=== PATIENT | male | born 1985 | race Two or more races ===

== ENCOUNTER 2017-07-25 10:15 | Emergency (ER) | payer MEDICARE ==
[~2017-07-25] VITALS: Ht 188 cm; Wt 124.7 kg
[2017-07-25 11:09] LABS: Basophils # (auto) 0.1 uL; Eosinophils # (auto) 0.1 uL; Eosinophils % (auto) 0.9 % (0.0-7.0); Hematocrit 44.4 % (41.0-53.0); Hemoglobin 15.3 g/dL (13.5-17.5); Lymphocytes # (auto) 3.1 uL; Lymphocytes % (auto) 30.2 % (10.0-50.0); Mean Corpuscular Hgb Conc. 34.6 g/dL (32.0-36.0); Mean Corpuscular Volume 92.6 fL (80.0-100.0); Mean Platelet Volume 9.4 fL (6.9-10.8); Monocytes # (auto) 0.7 uL; Monocytes % (auto) 6.7 % (0.0-12.0); Neutrophils # (auto) 6.2 uL; Neutrophils % (auto) 61.2 % (37.0-80.0); Nucleated Red Blood Cells % 0.1 %; Platelet Count (auto) 244 10^3/uL (140-450); Red Cell Distribution Width 13.2 % (11.8-14.3); White Blood Cell 10.2 10^3/uL (4.4-10.8)
[2017-07-25 11:36] LABS: Albumin 3.9 g/dL (3.4-5.0); BUN/Creatinine Ratio 12.6; Bilirubin, Total 1.5 mg/dL (0.2-1.0); Calcium 8.9 mg/dL (8.5-10.1); Potassium 4.1 mmol/L (3.5-5.1); Total Protein 7.7 g/dL (6.4-8.2)
[2017-07-25] MEDS ORDERED: SODIUM CHLORIDE 0.9% 1,000 ML IV ONE ×3 (11:53→16:30)
[2017-07-25] MEDS ORDERED: InsuLIN REG 1unit/0.01ml Soln (100units/ml) IV ONE ×3 (12:00→17:15)
[2017-07-25 12:14] LABS: Urine Bilirubin Negative (Negative); Urine Blood Negative /uL (Negative); Urine Color Yellow (Yellow); Urine Glucose 4+ mg/dL (Normal); Urine Ketone 1+ (Negative); Urine Nitrite Negative (Negative); Urine RBC <1 /hpf (0 - 3); Urine Urobilinogen Normal (Negative); Urine pH 5.5 (5.0-8.0)
[2017-07-25 15:54] VITALS: BP 150/98
== END 2017-07-25 17:46 | disposition home or self-care (01) ==
LOC: ER 10:15
DX: E11.65 Type 2 diabetes mellitus with hyperglycemia (principal); E11.22 Type 2 diabetes mellitus with diabetic chronic kidney disease; N18.9 Chronic kidney disease, unspecified; M10.9 Gout, unspecified
CPT/HCPCS: 36415; 80053; 81001; 82962; 85025; 96361; 96374; 96376; 99284; J1815; J7030; J7040

== ENCOUNTER 2017-08-04 12:33 | Emergency (ER) | payer MEDICARE ==
[~2017-08-04] VITALS: Ht 185.4 cm; Wt 122.5 kg
[2017-08-04 14:08] VITALS: BP 136/100
[2017-08-04] MEDS ORDERED: HYDROcodone-ACET 7.5/325MG TAB PO ONE (14:30)
[2017-08-04] MEDS ORDERED: methylPREDNISolone SOD SUCC 125 MG/2 ML VL IM ONE (14:30)
== END 2017-08-04 15:02 | disposition home or self-care (01) ==
LOC: ER 12:33
DX: M10.9 Gout, unspecified (principal); E11.22 Type 2 diabetes mellitus with diabetic chronic kidney disease; N18.9 Chronic kidney disease, unspecified; Z88.1 Allergy status to other antibiotic agents
CPT/HCPCS: 82962; 96372; 99283; J2930

== ENCOUNTER 2017-10-12 13:05 | Inpatient (IN) | payer MEDICARE, MEDICAID ==
[~2017-10-12] VITALS: Ht 185.4 cm; Wt 118.6 kg
[2017-10-12 13:50] LABS: Basophils # (auto) 0 uL; Basophils % (auto) 0.2 % (0.0-2.0); Eosinophils # (auto) 0 uL; Hematocrit 43.7 % (41.0-53.0); Hemoglobin 14.8 g/dL (13.5-17.5); Lymphocytes # (auto) 0.6 uL; Lymphocytes % (auto) 4.2 % (10.0-50.0); Mean Corpuscular Hemoglobin 31.6 pg (28.0-32.0); Mean Corpuscular Hgb Conc. 33.8 g/dL (32.0-36.0); Mean Corpuscular Volume 93.5 fL (80.0-100.0); Monocytes # (auto) 0.5 uL; Monocytes % (auto) 3.7 % (0.0-12.0); Neutrophils # (auto) 13.2 uL; Neutrophils % (auto) 91.9 % (37.0-80.0); Platelet Count (auto) 211 10^3/uL (140-450); Red Blood Cells 4.67 10^6/uL (4.5-5.90); Red Cell Distribution Width 13.3 % (11.8-14.3); White Blood Cell 14.4 10^3/uL (4.4-10.8)
[2017-10-12] MEDS ORDERED: SODIUM CHLORIDE 0.9% 1,000 ML IV ONE ×4 (13:50→14:49)
[2017-10-12] MEDS ORDERED: INDOMETHACIN 25 MG CAP PO ONE (14:00)
[2017-10-12 14:19] LABS: Albumin 3.6 g/dL (3.4-5.0); BUN/Creatinine Ratio 8.4; Bilirubin, Total 2.2 mg/dL (0.2-1.0); Calcium 8.9 mg/dL (8.5-10.1); Potassium 4.7 mmol/L (3.5-5.1)
[2017-10-12 14:25] LABS: Urine Bacteria NONE SEEN /hpf (None Seen); Urine Blood Negative /uL (Negative); Urine WBC 1 /hpf (0 - 3)
[2017-10-12] MEDS ORDERED: InsuLIN R (HUMAN) 100 UNITS in SODIUM CHL 0.9% 99 ML IV SCH (14:49)
[2017-10-12] MEDS ORDERED: SODIUM CHLORIDE 0.9% 1,000 ML IV SCH ×4 (14:49→20:49)
[2017-10-12] MEDS ORDERED: ACCU-CHEK COMFORT CURVE STRIP VI SCH (15:00)
[2017-10-12] MEDS ORDERED: DEXTROSE (50%) 50ML SYRG IV PRN ×2 (15:00→15:15)
[2017-10-12] MEDS ORDERED: ACETAMINOPHEN 500 MG TAB PO PRN (15:15)
[2017-10-12] MEDS ORDERED: TEMAZEPAM 15 MG CAP PO PRN (15:15)
[2017-10-12] MEDS ORDERED: LORazepam 0.5 MG TAB PO PRN (15:15)
[2017-10-12] MEDS ORDERED: NITROGLYCERIN 0.4 MG SL TAB SL PRN (15:15)
[2017-10-12] MEDS ORDERED: MORPHINE SULFATE 10 MG/ML INJ 1ML SDV IV PRN (15:15)
[2017-10-12 15:17] LABS: Magnesium 2.1 mg/dL (1.6-2.6); Phosphorus 3.2 mg/dL (2.5-4.90)
[2017-10-12 15:43] LABS: Uric Acid 11.9 mg/dL (3.5-7.2)
[2017-10-12 15:52] LABS: Lactic Acid w/Reflex 2.8 mmol/L (0.4-2.0)
[2017-10-12] MEDS ORDERED: ALBUTEROL SULF 2.5 MG/0.5ML(0.5%) NEB SOLN NEB PRN (16:15)
[2017-10-12] MEDS ORDERED: OSELTAMIVIR 75 MG CAP PO ONE (16:15)
[2017-10-12] MEDS ORDERED: LACTULOSE 20Gm/30ML SOLN PO PRN (16:15)
[2017-10-12 16:22] LABS: CRP High Sensitivity > 19.0 mg/dL (< 0.3)
[2017-10-12] MEDS: InsuLIN R (HUMAN) 100 UNITS in SODIUM CHL 0.9% 99 ML IV SCH ×3 (16:30→19:52)
[2017-10-12] MEDS: ACCU-CHEK COMFORT CURVE STRIP VI SCH ×5 (16:31→22:30)
[2017-10-12 16:32] VITALS: BP 98/49
[2017-10-12 16:42] LABS: Calcium 8.7 mg/dL (8.5-10.1); Potassium 4.9 mmol/L (3.5-5.1)
[2017-10-12] MEDS: SODIUM CHLORIDE 0.9% 1,000 ML IV SCH ×3 (16:57→21:05)
[2017-10-12] MEDS: DOXYCYCLINE HYC 100MG/250ML 250 ML IV SCH (17:20)
[2017-10-12] MEDS: ALBUTEROL SULF 2.5 MG/0.5ML(0.5%) NEB SOLN NEB SCH (18:24)
[2017-10-12] MEDS: PROMETHAZINE HCL 25 MG/ML 1ML IV PRN (20:51)
[2017-10-12] MEDS: COLCHICINE 0.6 MG TAB PO SCH (22:00)
[2017-10-12] MEDS: OSELTAMIVIR 75 MG CAP PO SCH (22:00)
[2017-10-12 22:02] LABS: BUN/Creatinine Ratio 12.3; Calcium 8.2 mg/dL (8.5-10.1); Potassium 4.6 mmol/L (3.5-5.1)
[2017-10-13] MEDS: ACCU-CHEK COMFORT CURVE STRIP VI SCH ×17 (01:30→23:53)
[2017-10-13] MEDS: SODIUM CHLORIDE 0.9% 1,000 ML IV SCH ×4 (03:45→22:27)
[2017-10-13] MEDS: DOXYCYCLINE HYC 100MG/250ML 250 ML IV SCH ×2 (04:30→16:25)
[2017-10-13 04:33] LABS: BUN/Creatinine Ratio 12.2; Calcium 7.9 mg/dL (8.5-10.1); Potassium 4.9 mmol/L (3.5-5.1)
[2017-10-13] MEDS: ALBUTEROL SULF 2.5 MG/0.5ML(0.5%) NEB SOLN NEB SCH ×4 (06:00→18:00)
[2017-10-13] MEDS: COLCHICINE 0.6 MG TAB PO SCH ×2 (09:28→22:34)
[2017-10-13] MEDS: OSELTAMIVIR 75 MG CAP PO SCH (09:28)
[2017-10-13] MEDS: PANTOPRAZOLE 40 MG TAB PO SCH (09:28)
[2017-10-13] MEDS: ENOXAPARIN SOD 40 MG/0.4 ML SYRINGE SC SCH (09:28)
[2017-10-13 10:37] LABS: BUN/Creatinine Ratio 12.7; Calcium 6.8 mg/dL (8.5-10.1); Potassium 3.3 mmol/L (3.5-5.1)
[2017-10-13] MEDS: PROMETHAZINE HCL 25 MG/ML 1ML IV PRN ×2 (10:49→23:14)
[2017-10-13] MEDS: MORPHINE SULFATE 10 MG/ML INJ 1ML SDV IV PRN ×2 (10:49→23:03)
[2017-10-13] MEDS: HYDROcodone-ACET 5/325MG TAB PO PRN (16:45)
[2017-10-14] MEDS: ACCU-CHEK COMFORT CURVE STRIP VI SCH ×11 (01:38→21:35)
[2017-10-14] MEDS: DOXYCYCLINE HYC 100MG/250ML 250 ML IV SCH ×2 (04:34→16:43)
[2017-10-14] MEDS: SODIUM CHLORIDE 0.9% 1,000 ML IV SCH ×2 (06:10→13:35)
[2017-10-14] MEDS: ALBUTEROL SULF 2.5 MG/0.5ML(0.5%) NEB SOLN NEB SCH ×4 (06:15→18:00)
[2017-10-14] MEDS: HYDROcodone-ACET 5/325MG TAB PO PRN ×3 (06:28→15:02)
[2017-10-14 07:14] LABS: Hematocrit 36.8 % (41.0-53.0); Hemoglobin 12.2 g/dL (13.5-17.5); Mean Corpuscular Hemoglobin 31.1 pg (28.0-32.0); Mean Corpuscular Hgb Conc. 33.2 g/dL (32.0-36.0); Mean Corpuscular Volume 93.6 fL (80.0-100.0); Platelet Count (auto) 181 10^3/uL (140-450); Red Blood Cells 3.93 10^6/uL (4.5-5.90); Red Cell Distribution Width 13.2 % (11.8-14.3); White Blood Cell 9.1 10^3/uL (4.4-10.8)
[2017-10-14 07:36] LABS: Basophils % (manual) 0 (0.0-2.0); Blast Cells 0; Metamyelocytes % 0; Myelocytes % 0; Promyelocytes % 0; Reactive Lymphocytes 0
[2017-10-14 07:40] LABS: BUN/Creatinine Ratio 7.9; Calcium 8.1 mg/dL (8.5-10.1); Potassium 3.6 mmol/L (3.5-5.1)
[2017-10-14] MEDS: PANTOPRAZOLE 40 MG TAB PO SCH (10:30)
[2017-10-14] MEDS: COLCHICINE 0.6 MG TAB PO SCH ×2 (10:30→21:35)
[2017-10-14] MEDS: ENOXAPARIN SOD 40 MG/0.4 ML SYRINGE SC SCH (10:30)
[2017-10-14 13:07] LABS: Band Neutrophils % (manual) 2; Eosinophils % (manual) 4 (0-7); Lymphocytes % (manual) 23 (10.0-50.0); Monocytes % (manual) 2 (0-12)
[2017-10-14] MEDS ORDERED: DEXTROSE (50%) 50ML SYRG IV PRN (14:30)
[2017-10-14] MEDS: InsuLIN REG 1unit/0.01ml Soln (100units/ml) SC SCH (19:09)
[2017-10-14 19:17] VITALS: BP 155/101
[2017-10-14] MEDS: MORPHINE SULFATE 10 MG/ML INJ 1ML SDV IV PRN (20:06)
[2017-10-14 22:00] VITALS: BP 150/95
[2017-10-14] MEDS ORDERED: InsuLIN REG 1unit/0.01ml Soln (100units/ml) SC SCH (22:00)
[2017-10-15] MEDS: ALBUTEROL SULF 2.5 MG/0.5ML(0.5%) NEB SOLN NEB SCH ×3 (00:28→11:25)
[2017-10-15] MEDS: DOXYCYCLINE HYC 100MG/250ML 250 ML IV SCH (04:26)
[2017-10-15 05:00] VITALS: BP 136/87
[2017-10-15] MEDS: MORPHINE SULFATE 10 MG/ML INJ 1ML SDV IV PRN ×2 (06:05→14:30)
[2017-10-15] MEDS: PROMETHAZINE HCL 25 MG/ML 1ML IV PRN ×2 (06:05→14:30)
[2017-10-15] MEDS: InsuLIN REG 1unit/0.01ml Soln (100units/ml) SC SCH ×2 (06:19→13:39)
[2017-10-15] MEDS: ACCU-CHEK COMFORT CURVE STRIP VI SCH ×2 (06:19→11:30)
[2017-10-15 08:00] VITALS: BP 139/101
[2017-10-15 08:00] LABS: Hemoglobin 12.4 g/dL (13.5-17.5); Mean Corpuscular Hemoglobin 31.6 pg (28.0-32.0); Mean Corpuscular Hgb Conc. 34.6 g/dL (32.0-36.0); Mean Corpuscular Volume 91.3 fL (80.0-100.0); Platelet Count (auto) 210 10^3/uL (140-450); Red Blood Cells 3.94 10^6/uL (4.5-5.90); Red Cell Distribution Width 13.1 % (11.8-14.3); White Blood Cell 7.7 10^3/uL (4.4-10.8)
[2017-10-15 08:06] LABS: Calcium 8.4 mg/dL (8.5-10.1); Potassium 3.6 mmol/L (3.5-5.1)
[2017-10-15 08:11] LABS: Basophils % (manual) 0 (0.0-2.0); Blast Cells 0; Myelocytes % 0; Promyelocytes % 0; Reactive Lymphocytes 0
[2017-10-15 08:29] LABS: BUN/Creatinine Ratio 6.1
[2017-10-15 09:04] VITALS: BP 136/87
[2017-10-15 09:29] LABS: Band Neutrophils % (manual) 3; Eosinophils % (manual) 3 (0-7); Lymphocytes % (manual) 30 (10.0-50.0); Monocytes % (manual) 7 (0-12)
[2017-10-15 09:30] LABS: Metamyelocytes % 0
[2017-10-15] MEDS: PANTOPRAZOLE 40 MG TAB PO SCH (10:58)
[2017-10-15] MEDS: COLCHICINE 0.6 MG TAB PO SCH (10:58)
[2017-10-15] MEDS: ENOXAPARIN SOD 40 MG/0.4 ML SYRINGE SC SCH (10:59)
[2017-10-15 12:00] VITALS: BP 140/89
[2017-10-15 15:57] VITALS: BP 140/89
[2017-10-15 16:56] VITALS: BP 140/89
== END 2017-10-15 16:56 | disposition home or self-care (01) | DRG 871 ==
LOC: ER 13:15 → TELE 13:16 → TELE-WESTW 10-14 16:58
PROVIDERS: ADMIT Internal Medicine; ATTEND Family Medicine
DX: A41.9 Sepsis, unspecified organism (principal); E11.10 Type 2 diabetes mellitus with ketoacidosis without coma; N17.0 Acute kidney failure with tubular necrosis; J96.90 Respiratory failure, unspecified, unspecified whether with hypoxia or hypercapnia; G93.40 Encephalopathy, unspecified; J18.0 Bronchopneumonia, unspecified organism; E86.0 Dehydration; E87.0 Hyperosmolality and hypernatremia; Q60.0 Renal agenesis, unilateral; E11.22 Type 2 diabetes mellitus with diabetic chronic kidney disease; D64.9 Anemia, unspecified; I12.9 Hypertensive chronic kidney disease with stage 1 through stage 4 chronic kidney disease, or unspecified chronic kidney disease; J20.9 Acute bronchitis, unspecified; M10.9 Gout, unspecified; N18.9 Chronic kidney disease, unspecified; T38.0X5A Adverse effect of glucocorticoids and synthetic analogues, initial encounter; Z82.49 Family history of ischemic heart disease and other diseases of the circulatory system; Z83.3 Family history of diabetes mellitus; Z88.1 Allergy status to other antibiotic agents
CPT/HCPCS: 36415; 36600; 71045; 71046; 80048; 80053; 81001; 82010; 82805; 82962; 83036; 83605; 83735; 83930; 84100; 84550; 85007; 85025; 85027; 85652; 86141; 87040; 87400; 94640; 96360; J1815; J3490